=== PATIENT | female | born 1935 | race Two or more races ===

== ENCOUNTER 2021-12-07 09:14 | Inpatient (IN) | payer OTHER ==
[~2021-12-07] VITALS: Ht 167.6 cm; Wt 81.6 kg
[2021-12-07] MEDS ORDERED: RISPERDAL1 MG PO (09:32)
[2021-12-07] MEDS ORDERED: LEVOTHYROXINE25 MCG PO (09:32)
--- NOTE | 2021-12-07 09:38 | NUR ---
SE RECIBE PTE EN AMBULANCIA LETARGICA ,LOS PARAMEDICOS REFIEREN QUE LA PTE TIENE LA CADERA DERECHA DISLOCADA,REFIEREN QUE LE INFORMARON EN EL HOGAR QUE SE ENCUENTRA LA PTE QUE FUE MEDIANTE ANNA TRASNFERENCIA DESDE LA CAMA,REFIEREN LOS PARAMEDICOS QUE TIENE EL AREA CON UN HEMATOMA UN ABULTAMIENTO EN EL LADO RT. LOS PARAMEDICOS REFIEREN QUE LA PTE TUVO ANNA OPERACION DE CADERA HACEN ALGUNOS ANOS.
--- NOTE | 2021-12-07 16:03 | NUR ---
SE ORIENTA SOBRE EL TX. SE EXTRAEN MUESTRAS DE ALEX BAJO MEDIDAS ASEPTICAS SE ROTULAN Y ENVIAN AL LABORATORIO. SE CANALIZA Y COLOCA H/L. SE RUBIN MUESTRA DE UA , SE ROTULA Y ENVIA AL LABORATORIO
[2021-12-08] MEDS ORDERED: VITAMIN D350 MCG (14:47)
== END 2021-12-09 13:13 | DRG 536 ==
LOC: ER 09:14 → SURH 15:58 → SEC-K 15:58 → SURH 17:47
PROVIDERS: ADMIT Internal Medicine; ATTEND Internal Medicine
DX: S72.21XA Displaced subtrochanteric fracture of right femur, initial encounter for closed fracture (principal); I10 Essential (primary) hypertension; G30.9 Alzheimer's disease, unspecified; F02.80 Dementia in other diseases classified elsewhere, unspecified severity, without behavioral disturbance, psychotic disturbance, mood disturbance, and anxiety; Z20.822 Contact with and (suspected) exposure to COVID-19; Z74.01 Bed confinement status